=== PATIENT | male | born 1995 | race Caucasian/White ===

== ENCOUNTER → 2021-10-22 | Outpatient (CLI) | payer SELFPAY ==
--- NOTE | 2021-10-22 18:57 | CT ---
EXAMINATION TYPE: CT abdomen wo con DATE OF EXAM: 10/22/2021 COMPARISON: None available HISTORY: epigastric pain CT DLP: 408 mGycm Automated exposure control for dose reduction was used. TECHNIQUE: Helical acquisition of images was performed from the lung bases through the top of iliac crest to include entire abdomen. CONTRAST: Performed without Oral Contrast and without IV contrast. FINDINGS: LUNG BASES: No significant abnormality is appreciated. LIVER/GB: No significant abnormality is appreciated. PANCREAS: No significant abnormality is seen. SPLEEN: No significant abnormality is seen. ADRENALS: No significant abnormality is seen. KIDNEYS: 3 mm right mid pole nonobstructing renal calculus, otherwise unremarkable kidneys. BOWEL: Unremarkable nondistended stomach, duodenum and visualized small bowel. Fecal loading of the colon. Diffusely dilated appendix measuring up to 9 mm without significant surrounding inflammatory c hanges. This could represent sequela of previous appendicitis however underlying appendix lesion marya ot be excluded. Recommend clinical correlation and surgical consultation. LYMPH NODES: Scattered subcentimeter mesenteric and retroperitoneal lymph nodes. OSSEOUS STRUCTURES: No aggressive bone lesion. FREE AIR: No free air is visualized. OTHER: No sizable free abdominal fluid. IMPRESSION: Diffusely dilated appendix without significant surrounding inflammatory changes which could represent sequela of previous appendicitis however underlying perpendicular lesion cannot be excluded. Recomme nd clinical correlation and surgical consultation. Other incidental findings as described above.
== END | disposition home or self-care (01) ==
LOC: RADCTMAIN 13:13
PROVIDERS: ATTEND Psychiatry & Neurology Neurology
DX: K38.8 Other specified diseases of appendix (principal)
CPT/HCPCS: 74150